=== PATIENT | male | born 1990 | race Caucasian/White ===

== ENCOUNTER 2022-08-21 13:59 | Emergency (ER) | payer BC ==
[2022-08-21 14:12] VITALS: BP 115/78; PULSE 95; RESP 18; TEMP 98.1; BMI 21.7
== END 2022-08-21 15:08 | disposition home or self-care (01) ==
LOC: FER 13:59
DX: L63.8 Other alopecia areata (principal)
CPT/HCPCS: 99282-25

== ENCOUNTER 2022-08-23 19:08 | Emergency (ER) | payer BC ==
[2022-08-23 19:25] VITALS: BP 123/75; PULSE 99; RESP 18; TEMP 98.1; BMI 22.4
== END 2022-08-23 22:32 | disposition home or self-care (01) ==
LOC: FER 19:08
DX: M79.661 Pain in right lower leg (principal)
CPT/HCPCS: 93971-TC; 99283-25